=== PATIENT | male | born 1950 | race African-American/Black ===

== ENCOUNTER 2024-12-17 09:15 | Outpatient (CLI) | payer OTHER | END 2024-12-17 09:16 | disposition home or self-care (01) | LOC: CSHCT 09:15 | PROVIDERS: ATTEND Orthopaedic Surgery Hand Surgery | DX: M34.9 Systemic sclerosis, unspecified (principal); M47.22 Other spondylosis with radiculopathy, cervical region; I67.82 Cerebral ischemia; Z98.890 Other specified postprocedural states; M48.02 Spinal stenosis, cervical region; T84.226A Displacement of internal fixation device of vertebrae, initial encounter | CPT/HCPCS: 70551; 72125 ==